=== PATIENT | male | born 1935 | race Caucasian/White ===

== ENCOUNTER 2017-08-18 12:59 | Emergency (ER) | payer OTHER ==
--- NOTE | 2017-08-18 13:10 | EDPHY ---
H & P HPI/ROS: CHIEF COMPLAINT: Left wrist pain HISTORY OF PRESENT ILLNESS: The patient is an 82-year-old male who presents to the emergency department as a limited trauma activation via EMS. Patient was exiting his car. The door did not show dog away. He tried to "but close it." This caused him Oren forward on his left outstretched arm. He now has left wrist pain. He did not strike his head. No loss of consciousness. No headache or neck pain. No back pain. No chest pain or shortness of breath. He has had no abnormal bruising recently. He takes his Coumadin for reported "atrial flutter." REVIEW OF SYSTEMS: My complete review of systems is negative except as mentioned in the HPI. Past Medical/Surgical History: Includes Rutledge's esophagus, post-polio syndrome, systolic heart failure with ejection fraction of 25%, atrial fibrillation, diabetes, hypothyroidism, BPH, anemia, hyperlipidemia, coronary artery disease, peptic ulcer disease Past surgical history: Includes 4 vessel CABG, esophageal surgery Social history: The patient does not smoke Smoking Status: Former smoker Physical Exam: Vitals noted GENERAL: Well-appearing, in no acute distress, alert. HEAD: No evidence of trauma. EYES: PERRLA, EOMI, normal to inspection. ENT: Airway intact, no dental or oral injury, no malocclusion, no hemotympanum , normal external examination. NECK: The trachea is midline. There is no crepitus. The C-spine is nontender. NEXUS criteria is negative (no midline tenderness, no distracting injury, no altered mental status, no recent alcohol use, no focal neurologic deficit). RESPIRATORY: Clear to auscultation bilaterally, no rales, rhonchi or wheezing. There is no crepitus or palpable rib fractures. CVS: Regular rate and rhythm, no rubs, murmurs, or gallops. ABDOMEN: Soft, nontender, nondistended, normal bowel sounds, no bruising or abrasions. Pelvis: Stable. No tenderness palpation. Hips full range of motion. BACK: Normal to inspection, no spinal tenderness, no spinal step off, no notable bruising or abrasions. SKIN: Normal color, warm, dry. No pallor or diaphoresis. EXTREMITIES: Right upper extremity: Atraumatic. No visible signs of trauma. No tenderness palpation. Neurovascular intact distally. Left upper extremity: There is deformity at the patient's left wrist. Diffuse tenderness to palpation. No laceration or broken skin. Patient has no hand bony tenderness palpation. No forearm, elbow or humerus tenderness palpation. His shoulder is normal.. Right lower extremity: Atraumatic. No visible signs of trauma. No tenderness palpation. Neurovascular intact distally. Left lower extremity: Atraumatic. No visible signs of trauma. No tenderness palpation. Neurovascular intact distally. NEURO/PSYCH: Alert and oriented x 3, GCS 15, normal mood and affect, normal motor sensory exam. Constitutional: Initial Vital Signs Temperature (C) 36.6 C 08/18/17 13:10 Heart Rate 84 08/18/17 13:10 Respiratory Rate 16 08/18/17 13:10 Blood Pressure 134/87 H 08/18/17 13:10 O2 Sat (%) 93 08/18/17 13:10 O2 Delivery Mode Room Air Allergies/Adverse Reactions: No Known Allergies Allergy (Verified 10/05/12 13:54) Home Medications: Medication Instructions Recorded Levothyroxine [Synthroid 112 mcg 112 mcg PO DAILY06 12/31/12 (*)] Pioglitazone HCl [ACTOS] 30 mg PO DAILY 12/31/12 glipiZIDE [Glipizide] 5 mg PO DAILY 12/08/14 Diltiazem HCl [Diltiazem 24Hr ER] 120 mg PO DAILY 09/24/15 Sucralfate [Carafate 1gm/10ml Oral 1 gm PO QID 09/24/15 Liquid (*)] Warfarin Sodium [Coumadin 5MG (*)] 5 mg PO DAILY16 09/24/15 Pantoprazole Sodium [Protonix 40mg 40 mg PO BID #60 tab 09/26/15 (*)] Medical Decision Making - Diagnostics Imaging Results: Imaging Impressions Wrist X-Ray 08/18/17 13:06 Impression: 1. Acute comminuted impacted and angulated intra-articular distal radius fracture. 2. Acute 2 site distal ulna fracture. Wrist X-Ray 08/18/17 15:28 Impression: Slight improvement in significant positional deformities of comminuted fractures of distal radius and ulna. ED Course/Re-evaluation: In the emergency department I discussed possible etiologies with the patient. He consented to x-ray imaging. Left wrist x-ray: Please refer the dictated report by Dr. Turner. Patient has an acute comminuted impacted angulated intra-articular distal radius fracture. Discussed the results with the patient. I answered all his questions. I discussed the case with Dr. Strickland. Procedure: Hematoma block Indication: Wrist fracture Patient verbally consented to the procedure. I discussed the risks and benefits. The patient was given 8 mL of 1% lidocaine under sterile fashion as a hematoma block. He tolerated the procedure well. Procedure: Fracture reduction Indication: Wrist fracture Patient verbally consented the procedure. I discussed risks and benefits. Using manual technique the patient's wrist was reduced. He is placed in a [facility] Glass splint by me. He was neurovascularly intact post splint placement. Post reduction x-ray was ordered Wrist x-ray: Mild improvement and positioning. However, still comminuted and displaced fracture. I discussed the results with the patient. I answered all his questions. He will follow up with Dr. Shah. A shoulder sling was placed. Patient was given warnings prior to leaving. He will return with worsening symptoms. Differential Diagnosis: My differential includes but is not limited to wrist fracture, dislocation, contusion, sprain, closed-head injury, coagulopathy - Data Points Laboratory Results: Laboratory Results 08/18/17 13:25 08/18/17 13:25 08/18/17 08/18/17 08/18/17 13:25 13:25 13:25 WBC 5.96 10^3/uL 10^3/uL (3.80-9.50) RBC 4.37 10^6/uL L 10^6/uL (4.40-6.38) Hgb 12.7 g/dL L g/dL (13.7-17.5) Hct 36.7 % L % (40.0-51.0) MCV 84.0 fL fL (81.5-99.8) MCH 29.1 pg pg (27.9-34.1) MCHC 34.6 g/dL g/dL (32.4-36.7) RDW 14.4 % % (11.5-15.2) Plt Count 118 10^3/uL L 10^3/uL (150-400) PT 25.5 SEC H SEC (12.0-15.0) INR 2.30 H (0.83-1.16) APTT 36.0 SEC SEC (23.0-38.0) Sodium 142 mEq/L mEq/L (134-144) Potassium 3.8 mEq/L mEq/L (3.5-5.2) Chloride 108 mEq/L mEq/L (97-110) Carbon Dioxide 20 mEq/l L mEq/l (22-31) Anion Gap 14 mEq/L mEq/L (8-16) BUN 18 mg/dL mg/dL (7-23) Creatinine 1.3 mg/dL mg/dL (0.7-1.3) Estimated GFR 53 Glucose 107 mg/dL H mg/dL (70-100) Calcium 9.1 mg/dL mg/dL (8.5-10.4) Departure - Departure Disposition: Home, Routine, Self-Care Clinical Impression: Left wrist fracture Qualifiers: Encounter type: initial encounter Fracture type: closed Qualified Code(s): S62.102A - Fracture of unspecified carpal bone, left wrist, initial encounter for closed fracture Condition: Good Instructions: Wrist Fracture in Adults (ED) Additional Instructions: You have a wrist fracture. This will need close treatment and evaluation by Dr. Shah from Orthopedic surgery. Call 1st thing tomorrow morning or upon discharge tonight. He would like to see you in his office tomorrow. Referrals: Antoni Shah MD [Medical Doctor] - 1 day without fail
[2017-08-18 13:14] VITALS: RESP 16
[2017-08-18 13:33] LABS: HEMATOCRIT 36.7 % (40.0-51.0); HEMOGLOBIN 12.7 g/dL (13.7-17.5); MEAN CELL HEMOGLOBIN 29.1 pg (27.9-34.1); MEAN CELL HEMOGLOBIN CONCENTR. 34.6 g/dL (32.4-36.7); RED BLOOD CELL COUNT 4.37 10^6/uL (4.40-6.38); RED CELL DISTRIBUTION WIDTH 14.4 % (11.5-15.2)
[2017-08-18 13:43] LABS: INR 2.3 (0.83-1.16); PROTIME(PATIENT) 25.5 SEC (12.0-15.0)
[2017-08-18 13:47] LABS: ANION GAP 14 mEq/L (8-16); CALCIUM 9.1 mg/dL (8.5-10.4); CARBON DIOXIDE 20 mEq/l (22-31); CHLORIDE 108 mEq/L (97-110); CREATININE 1.3 mg/dL (0.7-1.3); GLOMERULAR FILTRATION RATE 53; GLUCOSE 107 mg/dL (70-100); POTASSIUM 3.8 mEq/L (3.5-5.2); SODIUM 142 mEq/L (134-144)
[2017-08-18] MEDS ORDERED: IBUPROFEN 200 MG TAB PO ONE (15:27)
[2017-08-18 16:51] VITALS: BP 120/59; PULSE 62; TEMP 98.6; O2SAT 96
== END 2017-08-18 16:51 | disposition home or self-care (01) ==
LOC: EDUNIT#
PROC: 0PSLXZZ Reposition Left Ulna, External Approach (ICD-10-PCS; principal; 2017-08-18)
PROC: 0PSJXZZ Reposition Left Radius, External Approach (ICD-10-PCS; principal; 2017-08-18)
DX: S52.502A Unspecified fracture of the lower end of left radius, initial encounter for closed fracture (principal); S52.602A Unspecified fracture of lower end of left ulna, initial encounter for closed fracture; E11.9 Type 2 diabetes mellitus without complications; I25.810 Atherosclerosis of coronary artery bypass graft(s) without angina pectoris; Z79.01 Long term (current) use of anticoagulants; Z87.891 Personal history of nicotine dependence; X58.XXXA Exposure to other specified factors, initial encounter; Y99.8 Other external cause status
CPT/HCPCS: G0390

== ENCOUNTER 2017-08-25 10:02 | Day surgery (SDC) | payer OTHER ==
--- NOTE | 2017-08-25 08:13 | GHP ---
[f rep st] PREOP HISTORY AND PHYSICAL Amended report CHIEF COMPLAINT: Left wrist. HISTORY OF PRESENT ILLNESS: Patient is an 82-year-old, sustained a fall on his left (nondominant) arm resulting in a left distal radius and ulna fracture. After a thorough discussion with the patient about the nature of his injury, it was recommended that operative treatment consisting of open reduction, internal fixation be pursued based on the significant amount of displacement at his fracture site. PAST MEDICAL HISTORY: Positive for diabetes, coronary artery disease. PAST MEDICINES: Include acyclovir, diltiazem, Fluzone, furosemide, glipizide, levothyroxine, lidocaine, pantoprazole, pioglitazone, ranitidine, and warfarin. ALLERGIES: He lists no drug allergies. SOCIAL HISTORY: Negative for tobacco use. PHYSICAL EXAM: GENERAL: Patient is alert and oriented x3, in no acute distress. HEENT: Head is normocephalic. Pupils equal, round, reactive to light. Extraocular eye movements intact. NECK: Supple. No JVD. CHEST: Clear to auscultation. HEART: Regular rate and rhythm. ABDOMEN: Soft, nontender, nondistended. No organomegaly. GENITAL, RECTAL, AND BREASTS: Deferred. EXTREMITIES: Reveals diffuse swelling in his left wrist. His distal neurovascular exam is intact. He has focal tenderness along his distal radius. ASSESSMENT: Left distal radius and ulna fracture. PLAN: Patient is scheduled to undergo open reduction, internal fixation of his left distal radius and ulna fracture. /[id number]/MODL Add acc#, 08/25/17, farideh YUNG
[2017-08-25] MEDS ORDERED: LR 1,000 ML IV ONE (10:43)
[2017-08-25 10:59] VITALS: PULSE 95
--- NOTE | 2017-08-25 11:00 | PDANEPAE ---
ANE Past Medical History - Cardiovascular History Hx Hypertension: No Hx Arrhythmias: Yes Hx Chest Pain: No Hx Coronary Artery / Peripheral Vascular Disease: Yes Hx CHF / Valvular Disease: No Hx Palpitations: No Cardiovascular History Comment: CABG x4 1999. atrial flutter/atrial fib - Pulmonary History Hx COPD: No Hx Asthma/Reactive Airway Disease: No Hx Recent Upper Respiratory Infection: No Hx Oxygen in Use at Home: No Hx Sleep Apnea: No Sleep Apnea Screening Result - Last Documented: Positive Pulmonary History Comment: hx of CPAP no longer uses - Neurologic History Hx Cerebrovascular Accident: No Hx Seizures: No Hx Dementia: No - Endocrine History Hx Diabetes: Yes Endocrine History Comment: Type 2 - Renal History Hx Renal Disorders: No - Liver History Hx Hepatic Disorders: No - Neurological & Psychiatric Hx Hx Neurological and Psychiatric Disorders: No - Cancer History Hx Cancer: Yes Cancer History Comment: esophageal - Congenital Disorder History Hx Congenital Disorders: No - GI History Hx Gastrointestinal Disorders: Yes Gastrointestinal History Comment: Barrets esophagitis - Other Health History Other Health History: Frx radius/ulna 08/18/2017 - Chronic Pain History Chronic Pain: No - Surgical History Prior Surgeries: CABG x 4 ,esohageal sx ANE Review of Systems Review of Systems: - Exercise capacity METS (RN): 4 METS ANE Patient History - Allergies Allergies/Adverse Reactions: No Known Allergies Allergy (Verified 10/05/12 13:54) - Home Medications Home Medications: Levothyroxine [Synthroid 112 mcg (*)] 112 mcg PO DAILY06 12/31/12 [Last Taken ] Pioglitazone HCl [ACTOS] 30 mg PO DAILY 12/31/12 [Last Taken 09/23/15] glipiZIDE [Glipizide] 5 mg PO DAILY 12/08/14 [Last Taken 09/23/15] Diltiazem HCl [Diltiazem 24Hr ER] 120 mg PO DAILY 09/24/15 [Last Taken 09/23/15] Sucralfate [Carafate 1gm/10ml Oral Liquid (*)] 1 gm PO QID 09/24/15 [Last Taken Unknown] Warfarin Sodium [Coumadin 5MG (*)] 5 mg PO DAILY16 09/24/15 [Last Taken 09/23/15 ] Furosemide 40 PO 08/21/17 [Last Taken Unknown] - NPO status NPO Since - Liquids (Date): 08/24/17 NPO Since - Liquids (Time): 22:00 NPO Since - Solids (Date): 08/24/17 NPO Since - Solids (Time): 20:00 - Smoking Hx Smoking Status: Former smoker - Family Anes Hx Family Hx Anesthesia Complications: none ANE Labs/Vital Signs - Vital Signs Blood Pressure: 154/83 Heart Rate: 95 Respiratory Rate: 15 O2 Sat (%): 96 Height: 177.8 cm Weight: 99.79 kg ANE Physical Exam - Airway Neck exam: decreased ROM Mallampati Score: Class 3 - Pulmonary Pulmonary: no respiratory distress - Cardiovascular Cardiovascular: other (a flutter) - ASA Status ASA Status: III ANE Anesthesia Plan Anesthesia Plan: GA w LMA
[2017-08-25] MEDS ORDERED: ceFAZolin 2 GM/DEXTROSE 100 ML IV ONE (11:10)
[2017-08-25] MEDS ORDERED: fentaNYL 100 MCG/2 ML INJ ONE ×3 (11:22→13:27)
[2017-08-25] MEDS ORDERED: PROPOFOL 200 MG/20 ML VIAL ONE (11:22)
[2017-08-25] MEDS ORDERED: LIDOCAINE 2% 100 MG/5 ML SYR ONE (11:23)
[2017-08-25] MEDS ORDERED: ceFAZolin 2 GM/SWFI 2 GM/20 ML SYR IVP ONE (11:30)
[2017-08-25 11:43] LABS: INR 1.87 (0.83-1.16); PROTIME(PATIENT) 21.6 SEC (12.0-15.0)
[2017-08-25 11:44] LABS: APTT 35.9 SEC (23.0-38.0)
[2017-08-25] MEDS ORDERED: BUPIVACAINE 0.5% 30 ML SDV ONE (11:50)
--- NOTE | 2017-08-25 13:09 | POSTOPPROG ---
Post Op Note Date of Operation: 08/25/17 Surgeon: Antoni Shah Anesthesia: GET(General Endotracheal) Pre-op Diagnosis: L fdistal radius and ulna fx Post-op Diagnosis: same Procedure: ORIF L distal radius/ulna Inf/Abcess present in the surg proc area at time of surgery?: No EBL: Minimal
[2017-08-25] MEDS ORDERED: NALOXONE HCL 0.4 MG/ML INJ IVP PRN (13:12)
[2017-08-25] MEDS ORDERED: ALBUTEROL 3 ML DEYVIAL IH PRN (13:12)
[2017-08-25] MEDS ORDERED: ONDANSETRON 4 MG/2 ML VIAL IVP PRN (13:12)
[2017-08-25] MEDS ORDERED: ACETAMINOPHEN 500 MG TAB PO PRN (13:12)
--- NOTE | 2017-08-25 13:12 | POSTANESTH ---
Post Anesthetic Evaluation Cardiovascular Status: Similar to Pre-Op Cond Respiratory Status: Similar to Pre-op Cond. Level of Consciousness/Mental Status: Mildly Sleepy, Arousable Pain Control: Adequate, Prn Tx Ordered Nausea/Vomiting Control: Adequate, Prn Tx Ordered Complications Possibly Related to Anesthesia: None Noted
[2017-08-25 13:26] VITALS: TEMP 97.7
[2017-08-25] MEDS: fentaNYL 100 MCG/2 ML INJ IVP PRN ×2 (13:30→13:38)
[2017-08-25] MEDS ORDERED: ACETAMINOPHEN 500 MG TAB ONE (14:54)
[2017-08-25 16:07] VITALS: BP 157/94
[2017-08-25 16:31] VITALS: O2SAT 96
[2017-08-25 16:34] VITALS: RESP 16
--- NOTE | 2017-08-25 21:41 | GOP ---
[f rep st] OPERATIVE REPORT DATE OF OPERATION: 08/25/2017 SURGEON: Antoni Shah MD ANESTHESIA: General. PREOPERATIVE DIAGNOSIS: Left comminuted intra-articular 4-part distal radius and ulna fractures. POSTOPERATIVE DIAGNOSIS: Left comminuted intra-articular 4-part distal radius and ulna fractures. PROCEDURE PERFORMED: 1. Open reduction and internal fixation, left 4-part distal radius and ulna fractures. 2. Intraoperative use of fluoroscopy. FINDINGS: ESTIMATED BLOOD LOSS: Minimal. INDICATIONS: Patient is an 82-year-old, right-hand dominant man, who sustained a fall on his left ou tstretched hand approximately 1 week prior resulting in a comminuted intra-articular distal radius fr acture. Based on the significant amount of shortening, intra-articular incongruity, and deformity, o perative treatment consisting of open reduction and internal fixation was recommended. Patient ackno wledged he understood the potential risks, including but not limited to bleeding, infection, neurovas cular damage, loss of limb or limb function, malunion, nonunion, need for hardware removal, pain or f unctional limitations despite operative treatment, and anesthetic risks. He acknowledged he understo od the potential risks, planned procedure, and postoperative plan well, and had all questions answere d prior to surgery. He gave his consent for the operative procedure. DESCRIPTION OF PROCEDURE: The patient was brought into the operating after IV antibiotics were admin istered. General anesthetic was administered. Tourniquet was placed on his left upper arm and his l eft upper extremity was prepped and draped in standard sterile fashion. After marking the incisions and Matt wrap exsanguination, the tourniquet was inflated to 250. Attention was initially directed to woodruff the ulna. A longitudinal incision was made along the subcutaneous border of the distal ulna. S kin and subcutaneous tissue were sharply incised. Sharp dissection was carried in the interval betwe en the flexor and extensor carpi ulnaris tendons along the lateral border of the ulna. An 8-hole 2.4 mm DC plate was placed along the lateral aspect of the ulna. Just distal to the fracture, a 2.4 mm screw was placed through the plate in ulnar to radial direction. Using a 2-point reduction clamp, th e fracture was reduced after freeing up interposed fibrous tissue. Two 2.4 mm cortical screws were p laced in proximal fracture with additional 2.4 mm screw distally. A 2.4 mm cortical lag screw was pl aced across the fracture site prior to placement of the peripheral cortical screws. Fluoroscopic vie ws confirmed favorable alignment and hardware placement. Deep tissue was closed with 2-0 Vicryl sutu re interrupted fashion. Subcutaneous tissue closed with 3-0 Vicryl suture interrupted fashion. Skin closed with skin mukesh. Attention was directed toward the radius. A longitudinal incision was made along the volar aspect of the radius. Skin incisions were sharply incised. Flexor retinaculum was incised in line with the s kin incision. Dissection was carried adjacent to the flexor carpi radialis, down to the volar aspect of the radius. Utilizing dental pick and fine-tip curette, interposed fibrous tissue at the fractur e sites was cleaned. The volar locking distal radius plate (Synthes) was placed at the appropriate l evel on the shaft of the radius. A 2.7 mm cortical screw was placed in the oblique hole after provis ionally pinning the plate in place with Dann wires. The distal segment along the ulnar aspect o f the distal radius was brought out to length and provisionally pinned with a Dann wire. With t he fracture held in the correct position correcting both for length, alignment, and volar tilt, this was secured to the ulnar aspect of the plate with two 2.4 mm cortical locking screws. The split radi al styloid fragment was then positioned into place and held provisionally with a periosteal elevator. 2.4 mm cortical locking screws were placed through the radial side of the plate into this segment. Additional 2.4 mm locking screws were placed in the distal aspect of the plate as well as two 2.4 mm cortical locking screws in the shaft segment of the plate. Fluoroscopic views confirmed anatomic ar ticular alignment and orientation at the joint surface. The metaphyseal segment was then filled with calcium phosphate (Osteomed) to support the subchondral segment to it. The flexor retinaculum was c losed with 2-0 Vicryl suture interrupted fashion. Subcutaneous tissue closed with 3-0 Vicryl suture in running fashion. Skin closed with 3-0 nylon interrupted sutures. The wounds were dressed with st erile Adaptic, 4 x 4, and Kerlix and a volar fiberglass splint was applied. The patient tolerated th e procedure well and was taken to the recovery room, extubated, in stable condition postoperatively. All sponge, needle, and instrument counts were reported as being correct. DRAINS: None. COMPLICATIONS: None. PLAN: Patient will be discharged home nonweightbearing on his operative extremity. /[id number]/MODL
== END 2017-08-25 16:45 | disposition home or self-care (01) ==
LOC: FSGY 10:02
PROVIDERS: ATTEND Orthopaedic Surgery Foot and Ankle Surgery
PROC: 0PSJ04Z Reposition Left Radius with Internal Fixation Device, Open Approach (ICD-10-PCS; principal; 2017-08-25 11:15)
PROC: 0PSL04Z Reposition Left Ulna with Internal Fixation Device, Open Approach (ICD-10-PCS; principal; 2017-08-25 11:15)
DX: S52.572A Other intraarticular fracture of lower end of left radius, initial encounter for closed fracture (principal); S52.602A Unspecified fracture of lower end of left ulna, initial encounter for closed fracture; W19.XXXA Unspecified fall, initial encounter; E11.9 Type 2 diabetes mellitus without complications; I25.10 Atherosclerotic heart disease of native coronary artery without angina pectoris; I48.91 Unspecified atrial fibrillation; Z79.01 Long term (current) use of anticoagulants; Z87.891 Personal history of nicotine dependence; Z95.1 Presence of aortocoronary bypass graft
CPT/HCPCS: C1713; J0690; J2001; J2704; J3010